=== PATIENT | female | born 1945 | race Caucasian/White ===

== ENCOUNTER → 2016-04-19 | Outpatient (CLI) | payer MEDICARE, OTHER | LOC: GMAM 10:46 | PROVIDERS: ATTEND Family Medicine | DX: M35.9 Systemic involvement of connective tissue, unspecified (principal) ==

== ENCOUNTER → 2016-05-05 | Outpatient (CLI) | payer MEDICARE, OTHER ==
--- NOTE | 2016-05-05 15:47 | MAM ---
EXAM DESCRIPTION: MAMMO BREAST SCREENING BILATERAL CAD, images were reviewed with CAD technology, R2 computer-aided detection. CLINICAL HISTORY: [facility]. COMPARISON: 2011 and 2014 exams. FINDINGS: Routine views are obtained. Nodular parenchymal pattern with the increased mammographic density period glandular pattern remains stable. No dominant mass, architectural distortion or clustered microcalcification. Nodular mammographic asymmetry right breast 12 o'clock, 7-8 cm from the nipple.. IMPRESSION: Incomplete study. BIRAD CATEGORY: 0 INCOMPLETE RECOMMENDATIONS: FOLLOW-UP: Additional views right breast with true lateral and spot compression films. Directed ultrasound if indicated clinically. According to the [employer], yearly mammograms are recommended starting at age 40 and continuing as long as a woman is in good health. Any breast change noted on a breast self-exam should be reported promptly to the patient's healthcare provider. Breast MRI is recommended for women with an approximately 20-25% or greater lifetime risk of breast cancer, including women with a strong family history of breast or ovarian cancer and women who have been treated for Hodgkin's disease. Electronically signed by: Violet Guerin 05/05/2016 15:45
== END ==
LOC: MAMMO 08:51
PROVIDERS: ATTEND Family Medicine
DX: Z12.31 Encounter for screening mammogram for malignant neoplasm of breast (principal)
CPT/HCPCS: 77052; G0202

== ENCOUNTER → 2016-05-27 | Outpatient (CLI) | payer MEDICARE, OTHER ==
--- NOTE | 2016-05-27 10:54 | MAM ---
EXAM DESCRIPTION: MAMMO BREAST DIAGNOSTIC BILATERAL Images were reviewed with R2 computer-aided detection. CLINICAL HISTORY: Mammographic asymmetry right breast 12 o'clock. COMPARISON: Screening evaluation 05/05/2016 and prior study from 2013 FINDINGS: True lateral view and spot compression films were obtained in this glandular tissue that has a nodular contour and the increased mammographic density. The additional views do not demonstrate a persistent asymmetry. No associated mass, architectural distortion or clustered microcalcification. IMPRESSION: Benign exam. BIRAD CATEGORY: 2 BENIGN RECOMMENDATION: FOLLOW-UP: Routine annual study recommended. Findings and recommendations were communicated to the patient by the technologist. According to the [employer], yearly mammograms are recommended starting at age 40 and continuing as long as a woman is in good health. Any breast change noted on a breast self-exam should be reported promptly to the patient's healthcare provider. Breast MRI is recommended for women with an approximately 20-25% or greater lifetime risk of breast cancer, including women with a strong family history of breast or ovarian cancer and women who have been treated for Hodgkin's disease. Electronically signed by: Violet Guerin 05/27/2016 10:52
== END | disposition home or self-care (01) ==
LOC: MAMMO 10:14
PROVIDERS: ATTEND Family Medicine
DX: R92.2 Inconclusive mammogram (principal)
CPT/HCPCS: 77065; G0204

== ENCOUNTER → 2016-07-21 | Outpatient (CLI) | payer MEDICARE, OTHER | LOC: LAB.O 09:42 | PROVIDERS: ATTEND Family Medicine | DX: R94.5 Abnormal results of liver function studies (principal); M35.9 Systemic involvement of connective tissue, unspecified; M06.9 Rheumatoid arthritis, unspecified ==

== ENCOUNTER → 2016-09-27 | Outpatient (CLI) | payer MEDICARE, OTHER ==
--- NOTE | 2016-09-27 17:38 | MRI ---
EXAM DESCRIPTION: Brain w/oContrast CLINICAL HISTORY: 71 years, Female, [facility] COMPARISON: None. FINDINGS: Standard triplanar sequences. Diffusion sequence does not show definite acute infarct. Gradient sequence does show hemorrhage. Ventricles and sulci within normal limits for age. Some minimal microcystic ischemic change periventricular white matter. Some mild ethmoid sinus because thickening. IMPRESSION: No acute infarct, hemorrhage or mass. Study within normal limits for age. Some mild microischemic change periventricular white, age-appropriate Electronically signed by: Xavier Jacobo MD 09/27/2016 5:37 PM CDT
--- NOTE | 2016-09-28 07:33 | MRI ---
MRI right hip without contrast INDICATION: Hip pain right no specific injury initial encounter TECHNIQUE: Noncontrast MR imaging right hip standard protocol FINDINGS: There is a nondisplaced parasymphyseal fracture in the right pubis with adjacent soft tissue edema. There appears to be a small fracture on the left as well. These may be traumatic or insufficiency fractures. There are bilateral sacral insufficiency fractures or traumatic fractures less likely as well. Typical relatively vertical/sagittal orientation. There is also a tear in the anterior superior labrum of the right hip on the sagittal images. Minimal trochanteric bursal edema. No rupture of the gluteal tendons. No osteonecrosis or femoral neck fracture. IMPRESSION: Bilateral sacral ala insufficiency fractures or less likely traumatic fractures Bilateral parasymphyseal pubic fractures nondisplaced Anterior superior labral tear right hip Electronically signed by: Jeremi Garcia MD 09/28/2016 7:32 AM CDT
== END | disposition home or self-care (01) ==
LOC: MRI 13:00
PROVIDERS: ATTEND Family Medicine
DX: R55 Syncope and collapse (principal); M25.551 Pain in right hip

== ENCOUNTER → 2016-10-21 | Outpatient (CLI) | payer MEDICARE, OTHER | END | disposition home or self-care (01) | LOC: LAB.O 11:39 | PROVIDERS: ATTEND Internal Medicine Sports Medicine | DX: M35.9 Systemic involvement of connective tissue, unspecified (principal); Z79.899 Other long term (current) drug therapy ==

== ENCOUNTER → 2016-11-24 | Outpatient (CLI) | payer MEDICARE, OTHER | LOC: LAB.O 09:39 | PROVIDERS: ATTEND Internal Medicine Sports Medicine | DX: Z79.899 Other long term (current) drug therapy (principal); Z01.89 Encounter for other specified special examinations ==

== ENCOUNTER → 2017-01-28 | Outpatient (CLI) | payer MEDICARE, OTHER | END | disposition home or self-care (01) | LOC: GMAM 10:22 | PROVIDERS: ATTEND Family Medicine | DX: M06.9 Rheumatoid arthritis, unspecified (principal) ==

== ENCOUNTER → 2017-05-02 | Outpatient (CLI) | payer MEDICARE, OTHER | END | disposition home or self-care (01) | LOC: GMAM 11:06 | PROVIDERS: ATTEND Family Medicine | DX: M06.9 Rheumatoid arthritis, unspecified (principal) ==

== ENCOUNTER → 2017-06-06 | Outpatient (CLI) | payer MEDICARE, OTHER ==
--- NOTE | 2017-06-10 16:16 | MAM ---
EXAM DESCRIPTION: 3D Screening BILATERAL : Digital Mammography. CLINICAL HISTORY: 71 years Female ANNUAL SCREENING . No complaints. No family history breast cancer. Postmenopausal. Currently on HRT. COMPARISON: 2-D digital screening bilateral studies 05/05/2016 and 02/27/2015.. Report from prior examination also reviewed. TECHNIQUE: Bilateral CC and MLO projection full-field images, 3-D tomosynthesis digital mammographic technique. Also bilateral synthesized CC/ MLO full-field images. CAD not utilized. FINDINGS: The breast parenchymal density pattern is: Heterogeneously dense breast tissue, which may obscure small masses. No skin thickening or nipple retraction bilateral solitary microcalcifications. These are primarily associated with the denser tissues anterior central breast. Bilateral coarse calcifications. Right breast vascular calcifications. No focal, stellate mass or density, focal asymmetry , and no suspicious microcalcifications bilaterally. Stable mammograms compared to prior studies, taking into account differences in mammographic technique IMPRESSION: BI-RADS CATEGORY: 2 - BENIGN FINDINGS. FOLLOW UP: Routine digital bilateral screening, one year interval from May 2017. Written communication explaining the IMPRESSION and follow-up, will be mailed to the patient and referring health care provider. According to the [employer], yearly mammograms are recommended starting at age 40 and continuing as long as a woman is in good health. Any breast change noted on a breast self-exam should be reported promptly to the patient's healthcare provider. Breast MRI is recommended for women with an approximately 20-25% or greater lifetime risk of breast cancer, including women with a strong family history of breast or ovarian cancer and women who have been treated for Hodgkin's disease. A negative mammographic report should not delay tissue diagnosis in patients with significant clinical history or physical findings. Extremely dense breast tissue limits the sensitivity of digital mammography. Electronically signed by: Sergio Rivas MD 06/10/2017 4:15 PM ASSET PROTECTION MANAGER
== END ==
LOC: MAMMO 10:00
PROVIDERS: ATTEND Family Medicine
DX: Z12.31 Encounter for screening mammogram for malignant neoplasm of breast (principal)

== ENCOUNTER → 2017-08-02 | Outpatient (CLI) | payer MEDICARE, OTHER | LOC: GMAM 11:24 | PROVIDERS: ATTEND Family Medicine | DX: M06.9 Rheumatoid arthritis, unspecified (principal) ==

== ENCOUNTER 2017-09-29 05:39 | Day surgery (SDC) | payer MEDICARE, OTHER ==
[2017-09-29] MEDS ORDERED: LACTATED RINGERS 1,000 ML ONE (06:40)
[2017-09-29] MEDS ORDERED: PROPOFOL 200 MG/20 ML VIAL IV ONE (07:00)
[2017-09-29] MEDS ORDERED: LIDOCAINE 1% 10 ML VIAL INJ ONE (07:00)
--- NOTE | 2017-09-29 09:06 | OP ---
DATE OF PROCEDURE: 09/29/17 INDICATION: Age 72, last colonoscopy greater than 10 years previous. PREOPERATIVE DIAGNOSIS: 1. Need for screening colonoscopy. POSTOPERATIVE DIAGNOSIS: 1. Colonoscopy completed to the cecum. 2. Cecal polyp, 4 mm, biopsied and full removed with straight forceps. PROCEDURE: 1. Colonoscopy. SURGEON: Juan C Hernandez MD ANESTHESIA: Per Daniel Cain CRNA. COMPLICATIONS: None apparent. ESTIMATED BLOOD LOSS: Less than 10 mL. TECHNIQUE: The patient was brought to the GI lab and laid in the left lateral decubitus position. Digital rectal exam was performed and found to be normal with good rectal tone and no masses palpated. The colonoscope was advanced gradually into the rectum and through to the cecum. The ileocecal valve was visualized. Photograph of the cecal area was taken. An approximately 4 mm polyp was noted in the cecum, biopsied and full removed with straight forceps biopsy. Good hemostasis was achieved. The scope was gradually withdrawn from the cecum back through the ascending colon and the transverse colon, which appeared normal, back into the descending colon, which also appeared normal, into the sigmoid colon which appeared normal and back into the rectum. In the rectum, the scope was retroflexed. No polyps or masses were found. The scope was straightened and removed. The patient tolerated the procedure well. There were no obvious complications. Prep was adequate. DISPOSITION: The patient will be discharged home when cleared from an Anesthesia standpoint. She will need repeat colonoscopy within 5 years as she did have a polyp and that recommendation could change based on the pathology of the polyp. She will followup with me in one week. #[id number] [facility]
[2017-09-29 10:09] VITALS: BP 132/74; TEMP 97; O2SAT 98
== END 2017-09-29 09:55 | disposition home or self-care (01) ==
LOC: AMB 05:39
PROVIDERS: ATTEND Family Medicine
DX: Z12.11 Encounter for screening for malignant neoplasm of colon (principal); D12.0 Benign neoplasm of cecum; E78.5 Hyperlipidemia, unspecified; I10 Essential (primary) hypertension; K59.00 Constipation, unspecified; M19.90 Unspecified osteoarthritis, unspecified site; K21.9 Gastro-esophageal reflux disease without esophagitis; M06.9 Rheumatoid arthritis, unspecified; Z80.0 Family history of malignant neoplasm of digestive organs; Z87.891 Personal history of nicotine dependence; Z88.7 Allergy status to serum and vaccine; Z88.8 Allergy status to other drugs, medicaments and biological substances; Z79.82 Long term (current) use of aspirin; Z79.899 Other long term (current) drug therapy
CPT/HCPCS: 00812; 45380; 88305; J3490; J7120

== ENCOUNTER → 2017-11-02 | Outpatient (CLI) | payer MEDICARE, OTHER | LOC: GMAM 11:17 | PROVIDERS: ATTEND Family Medicine | DX: M35.9 Systemic involvement of connective tissue, unspecified (principal) ==

== ENCOUNTER → 2018-02-07 | Outpatient (CLI) | payer MEDICARE, OTHER | LOC: GMAM 12:12 | PROVIDERS: ATTEND Family Medicine | DX: Z01.89 Encounter for other specified special examinations (principal); E55.9 Vitamin D deficiency, unspecified; M35.9 Systemic involvement of connective tissue, unspecified; E78.2 Mixed hyperlipidemia; M85.89 Other specified disorders of bone density and structure, multiple sites; Z79.899 Other long term (current) drug therapy ==

== ENCOUNTER 2018-02-27 16:14 | Inpatient (IN) | payer MEDICARE, OTHER ==
--- NOTE | 2018-02-27 16:34 | HP ---
SUPERVISING PHYSICIAN: Juan C Hernandez M.D. CHIEF COMPLAINT: Fever. HISTORY OF PRESENT ILLNESS: This is a 89 year-old female who came as a direct admission from Dr. Hernandez's office. Her illness starts basically back on the 13 of February where she received a Shingrix shingles vaccine. She states that several days later she started to get a cough and then she developed a sore throat. She went to see a nurse practitioner at Dr. Hernandez's office and was diagnosed with Strep. At that point she was placed on Cefdinir and also given a hydrocortisone injection. It should be noted also that the patient has RA, lupus and scleroderma and is in immunosuppressant medications. Back on the was when she was placed on those antibiotics. She states that since that time she developed a case of diarrhea and took some Imodium and probiotics, and that improved. But then she developed a rash to her chest, back, arms, basically everywhere on her body. She went to see Dr. Hernandez today. When he saw her today he did some labs and it showed a white count of 17.6, stable hemoglobin. Platelet count 253. She had a left shift of 87. Chemistry showed a low sodium of 132, potassium 3.3. UA was pretty much unremarkable, just showed 3 to 5 WBCs and was slightly cloudy but few bacteria. Nitrites were negative. She also had BioFire panel which was negative for Bordetella, Chlamydia, mycoplasma pneumonia and negative for multiple viruses as well. She had a chest x-ray which was concerning for either atelectasis or pneumonia in the lingula. Due to the leukocytosis, fever and unresolved with outpatient therapy, she was referred for direct admission. Upon examination the patient was alert and oriented in no distress. She did have an obvious rash throughout her body. The erythema is not raised. She was in no distress. PAST MEDICAL HISTORY: 1. Rheumatoid arthritis. 2. Scleroderma. 3. Lupus. 4. Hypertension. 5. Colon polyps. 6. Osteopenia. 7. Osteoporosis. 8. Shingles in the past. PAST SURGICAL HISTORY: 1. Hysterectomy. 2. Hemorrhoidectomy. 3. Shoulder surgery. 4. Colonoscopy. 5. Esophagogastroduodenoscopy. 6. Stress test. 7. Skin cancer resection off the nose. CURRENT MEDICATIONS: Please see the Med. Rec. list on the computer once it is verified. ALLERGIES: TETANUS TOXOID AND POSSIBLE CEPHALOSPORINS GIVEN THE RASH. FAMILY HISTORY: Father at 39 who had coronary artery disease. Mother who at 90 of congestive heart failure and coronary artery disease. She has 4 brothers, one who of complications from a surgery, 3 sisters, one who of pancreatic cancer, one who had colon cancer and one with thyroid issues. She has a daughter. SOCIAL HISTORY: Nondrinker. Distant history of smoking but quit in 1988. REVIEW OF SYSTEMS: CONSTITUTIONAL: Positive for fever and chills. No recent weight loss or weight gain. HEENT: No headaches, vision changes, ear pain. She has had some nasal congestion and throat pain. NECK: No neck stiffness or neck swelling. RESPIRATORY: Positive for cough. No hemoptysis. No pleuritic chest pain. CARDIOVASCULAR: No chest pain, palpitations or peripheral edema. GASTROINTESTINAL: No nausea, vomiting. She did have diarrhea but it has since resolved. No constipation. No abdominal pain. GENITOURINARY: No dysuria, frequency or flank pain. MUSCULOSKELETAL: Positive for joint pain that is chronic for her chronic conditions. No muscle cramps. HEMATOLOGIC: Positive for easy bruising but no transfusion reaction. ENDOCRINE: No polydipsia, polyuria or polyphagia. No heat or cold intolerance. INTEGUMENT: Positive for the rash as described in History of Present Illness. NEUROLOGIC: No syncope, seizures or paresthesias. PHYSICAL EXAMINATION: VITAL SIGNS: blood pressure 104/65, heart rate 93, respiratory rate 20, temperature 99.2, oxygen saturation 96%. GENERAL: Ms. Trevino is a 72 year-old female no active distress. HEENT: Head normocephalic and atraumatic. Eyes: Pupils are equal and reactive. Nose: With no drainage. Throat: With moist mucosa. Posterior oropharynx with erythema. NECK: Supple. Midline trachea. No jugular venous distention. CHEST: Symmetrical with easy rise and fall of the chest with inspiration and expiration. Lung sounds are clear to auscultation bilaterally. CARDIOVASCULAR: Regular rate and rhythm. Normal S1 and S2. ABDOMEN: Soft, positive bowel sounds. No tenderness to palpation. No organomegaly. GENITOURINARY: Exam is deferred. EXTREMITIES: Lower extremities with no significant edema, 2+ pulses. Capillary refill is less than 2 seconds. NEUROLOGIC: The patient is alert and oriented. Moves all extremities. Extraocular movements are intact. SKIN: Also has a diffuse macular rash. No open lesions. LABORATORY: Labs and films as discussed in the History of Present Illness. ASSESSMENT: 1. Lingular pneumonia. 2. Fever with immunocompromised state. 3. History of rheumatoid arthritis. 4. Scleroderma on immunosuppressant medications. 5. Hyponatremia and hypokalemia. 6. Rash possibly secondary to Streptococcus versus cephalosporin allergy. PLAN: At this point the patient will get some blood cultures. Will empirically place on Levaquin and obviously the cephalosporin will be discontinued. Additionally given her rash and her medical history, will place her on a low dose steroid to see if her rash improves as well as her symptoms. Will order DVT and GI ulcer prophylaxis as well. Once her medications are verified, I will resume her home medications. Will repeat labs tomorrow to ensure we are advancing in the right direction. I placed her on IV fluids with potassium to replete her sodium and potassium levels as well. #[id number] [facility]
[2018-02-27] MEDS ORDERED: SODIUM CHLORIDE 0.9% (FLUSH) 10 ML SYG IV PRN (16:41)
[2018-02-27] MEDS ORDERED: IV SET AND CAP CHANGE INJ INJ SCH (17:00)
[2018-02-27] MEDS: methylPREDNISolone SODIUM SUC 40 MG/ML VIAL IV SCH (18:17)
[2018-02-27] MEDS: levoFLOXacin 750MG IV 750 MG in PREMIX BAG 1 BAG IVPB SCH (18:17)
[2018-02-27] MEDS: ENOXAPARIN SODIUM 40 MG/0.4 ML SYG SUBCU SCH (18:17)
[2018-02-27] MEDS: KCL 20 MEQ/NS 1,000 ML IVS PRN (21:04)
[2018-02-27] MEDS: ACYCLOVIR 200 MG CAP PO SCH (21:06)
[2018-02-27] MEDS: FOLIC ACID 1 MG TAB PO SCH (21:10)
[2018-02-27] MEDS: NON-FORMULARY MEDICATION 1 EA MIS (Hydroxychloroquine Sulfate [Plaquenil] 200 MG) PO SCH (21:10)
[2018-02-27] MEDS: diphenhydrAMINE HCL 25 MG CAP PO PRN (22:07)
[2018-02-28] MEDS: methylPREDNISolone SODIUM SUC 40 MG/ML VIAL IV SCH ×3 (00:10→17:29)
[2018-02-28] MEDS: diphenhydrAMINE HCL 25 MG CAP PO PRN ×2 (03:14→21:24)
[2018-02-28] MEDS: KCL 20 MEQ/NS 1,000 ML IVS PRN ×2 (04:55→14:31)
[2018-02-28] MEDS: OMEPRAZOLE CAP 20 MG CAP PO SCH (06:01)
--- NOTE | 2018-02-28 07:10 | RAD ---
EXAM: Single view chest. INDICATION: Pneumonia. COMPARISON: Chest x-ray: 06/15/2010. FINDINGS: Cardiac silhouette: Unremarkable. Cely: Unremarkable. Lobar consolidation: None. Pleural effusion: None. Pneumothorax: None. Other: None. Bones: Unremarkable. Other: None. IMPRESSION: 1. No acute cardiopulmonary process. Electronically signed by: Ok Pierson MD 02/28/2018 7:09 AM [facility] Workstation: [id number]
[2018-02-28] MEDS: NON-FORMULARY MEDICATION 1 EA MIS (Hydroxychloroquine Sulfate [Plaquenil] 200 MG) PO SCH ×2 (09:00→20:07)
[2018-02-28] MEDS ORDERED: OMEPRAZOLE CAP 20 MG CAP PO SCH (09:00)
[2018-02-28] MEDS: ASPIRIN (ENTERIC COATED) 81 MG TAB PO SCH (09:44)
[2018-02-28] MEDS: ESTRADIOL TAB 1 MG PO SCH (09:44)
[2018-02-28] MEDS: CALCIUM CARBONATE-VITAMIN D 500 MG TAB PO SCH (09:44)
[2018-02-28] MEDS: CHOLECALCIFEROL 2,000 IU TAB PO SCH (09:44)
[2018-02-28] MEDS: SPIRONOLACTONE 25 MG TAB PO SCH (09:44)
[2018-02-28] MEDS: ACYCLOVIR 200 MG CAP PO SCH ×2 (09:45→20:06)
[2018-02-28] MEDS: FOLIC ACID 1 MG TAB PO SCH ×2 (09:45→20:06)
[2018-02-28] MEDS: BIOTIN 1000 MCG PO SCH (09:56)
[2018-02-28] MEDS: HCTZ 25 MG/TRIAMTERENE 37.5 MG 1 EA CAP PO SCH (10:00)
[2018-02-28] MEDS: LOSARTAN POTASSIUM 25 MG TAB PO SCH (10:00)
--- NOTE | 2018-02-28 10:08 | PN ---
SUPERVISING PHYSICIAN: Juan C Hernandez MD DATE: 02/28/18 SUBJECTIVE: The patient feels a lot better than she did yesterday. She was actually up to the sink washing her face. No complaints of shortness of breath. She states her rash is better and her face is definitely less erythematous, but she still has a pretty significant rash on her back. OBJECTIVE: VITAL SIGNS: Blood pressure 111/63. Heart rate 74. Respiratory rate 16. Temperature 97.9. Oxygen saturation 97%. GENERAL: Ms. Trevino is a 72-year-old female in no active distress at this time. NEUROLOGIC: Alert and oriented. LUNGS: Clear to auscultation bilaterally. CARDIOVASCULAR: Regular rate and rhythm. Normal S1, S2. ABDOMEN: Soft. Positive bowel sounds. SKIN: She still has the diffuse, splotchy rash that she had yesterday, but it seems less pronounced and less erythema on her face. LABORATORY: White count 7.1, hemoglobin 13.9, hematocrit 41.3, platelet count 210. This is all improved from the labs done in the office yesterday. Sodium 130, potassium 3.5, chloride 98, CO2 22, BUN 17, creatinine 0.84, glucose 137, calcium 8.3. Chest x-ray is no indicative of any cardiopulmonary process at this time. ASSESSMENT: 1. Lingular pneumonia, appears to be improving. 2. Fever with immunocompromised state, improved. 3. History of rheumatoid arthritis. 4. Scleroderma on immunosuppressant medications. 5. Hyponatremia. 6. Hypokalemia. 7. Rash, possibly secondary to Streptococcal infection versus cephalosporin allergy. PLAN: X-ray seems to be improved. We will continue current antibiotics. I am also going to reduce her steroids given her improvement in her rash. She did not really sleep much last night either. We will continue DVT and GI ulcer prophylaxis as well. Hopefully, she can go home tomorrow with p.o. antibiotics and titrating dose of steroids if she continues to progress. #[id number] [facility]
[2018-02-28] MEDS ORDERED: methylPREDNISolone SODIUM SUC 40 MG/ML VIAL ONE (15:58)
[2018-02-28] MEDS: ENOXAPARIN SODIUM 40 MG/0.4 ML SYG SUBCU SCH (17:28)
[2018-02-28] MEDS: levoFLOXacin 750MG IV 750 MG in PREMIX BAG 1 BAG IVPB SCH (17:28)
[2018-03-01] MEDS: KCL 20 MEQ/NS 1,000 ML IVS PRN (01:29)
[2018-03-01 02:23] VITALS: O2SAT 97
[2018-03-01] MEDS: OMEPRAZOLE CAP 20 MG CAP PO SCH (06:00)
[2018-03-01] MEDS: ASPIRIN (ENTERIC COATED) 81 MG TAB PO SCH (08:27)
[2018-03-01] MEDS: SPIRONOLACTONE 25 MG TAB PO SCH (08:29)
[2018-03-01] MEDS: LOSARTAN POTASSIUM 25 MG TAB PO SCH (08:29)
[2018-03-01] MEDS: HCTZ 25 MG/TRIAMTERENE 37.5 MG 1 EA CAP PO SCH (08:30)
[2018-03-01] MEDS: BIOTIN 1000 MCG PO SCH (08:30)
[2018-03-01] MEDS: CALCIUM CARBONATE-VITAMIN D 500 MG TAB PO SCH (08:31)
[2018-03-01] MEDS: FOLIC ACID 1 MG TAB PO SCH (08:31)
[2018-03-01] MEDS: ESTRADIOL TAB 1 MG PO SCH (08:31)
[2018-03-01] MEDS: NON-FORMULARY MEDICATION 1 EA MIS (Hydroxychloroquine Sulfate [Plaquenil] 200 MG) PO SCH (08:31)
[2018-03-01] MEDS: methylPREDNISolone SODIUM SUC 40 MG/ML VIAL IV SCH (08:35)
[2018-03-01] MEDS: ACYCLOVIR 200 MG CAP PO SCH (08:36)
[2018-03-01] MEDS: CHOLECALCIFEROL 2,000 IU TAB PO SCH (08:36)
[2018-03-01 10:39] VITALS: BP 120/66; TEMP 97.6
[2018-03-06] MEDS ORDERED: METHOTREXATE SODIUM PO SCH (09:00)
--- NOTE | 2018-03-07 10:53 | DS ---
SUPERVISING PHYSICIAN: Juan C Hernandez MD ADMISSION DIAGNOSIS: 1. Lingular pneumonia. 2. Fever with immunocompromised state. 3. History of rheumatoid arthritis. 4. Scleroderma on immunosuppressant medications. 5. Hyponatremia and hypokalemia. 6. Rash possibly secondary to Streptococcus versus cephalosporin allergy. DISCHARGE DIAGNOSIS: 1. Lingular pneumonia, improving. 2. Fever with immunocompromised state, improving, secondary to #1. 3. Leukocytosis at time of admission with the patient showing clinically a good response to treatment but on high dose steroids prior to discharge. 4. History of rheumatoid arthritis. 5. Scleroderma on immunosuppressant medications. 6. Electrolytes imbalance with hyponatremia and hypokalemia, showing improvement with fluids. 7. Rash, uncertain etiology but likely due to cephalosporin allergy. REASON FOR HOSPITALIZATION: This is a 89 year-old female who came as a direct admission from Dr. Hernandez's office. Her illness starts basically back on the 13 of February where she received a Shingrix shingles vaccine. She states that several days later she started to get a cough and then she developed a sore throat. She went to see a nurse practitioner at Dr. Hernandez's office and was diagnosed with Strep. At that point she was placed on Cefdinir and also given a hydrocortisone injection. It should be noted also that the patient has RA, lupus and scleroderma and is in immunosuppressant medications. Back on the was when she was placed on those antibiotics. She states that since that time she developed a case of diarrhea and took some Imodium and probiotics, and that improved. But then she developed a rash to her chest, back, arms, basically everywhere on her body. She went to see Dr. Hernandez today. When he saw her today he did some labs and it showed a white count of 17.6, stable hemoglobin. Platelet count 253. She had a left shift of 87. Chemistry showed a low sodium of 132, potassium 3.3. UA was pretty much unremarkable, just showed 3 to 5 WBCs and was slightly cloudy but few bacteria. Nitrites were negative. She also had BioFire panel which was negative for Bordetella, Chlamydia, mycoplasma pneumonia and negative for multiple viruses as well. She had a chest x-ray which was concerning for either atelectasis or pneumonia in the lingula. Due to the leukocytosis, fever and unresolved with outpatient therapy, she was referred for direct admission. Upon examination the patient was alert and oriented in no distress. She did have an obvious rash throughout her body. The erythema is not raised. She was in no distress. LABORATORY STUDIES: White count 7,100 initially, at discharge was 21,200 with 5 % bands and a left shift after being given high-dose of corticosteroids. Chemistries showed a low sodium and potassium on admission. Discharge sodium had normalized to 140, potassium was at 3.4. BUN 19, creatinine 0.73. MICROBIOLOGY: Blood cultures x2 showed no growth after 5 days. RADIOLOGY: Chest x-ray on admission showed no acute the patient process. HOSPITAL COURSE: Ms. Trevino was admitted on 02/27/18 for treatment of pneumonia and started on Levaquin and Solu-Medrol. She progressed clinically well and was felt stable enough to continue with treatment as transitioned to p.o. medications as an outpatient. PLAN: Ms. Trevino was discharged on 03/01 with instructions to followup with Dr. Hernandez on 03/08/18 at 10:30 AM. She is to resume her home medications as instructed and was told to return to the hospital should she have any concerning symptoms. DISCHARGE DIET: Regular as tolerated. ACTIVITIES: As tolerated. MEDICATIONS: To include Levaquin 757 mg daily for 7 days, Medrol Dosepak as directed. All other medications prior to hospitalization are resumed with no modification. CONDITION ON DISCHARGE: Stable and improving. DISPOSITION: Discharge to care of family. #[id number] [facility]
== END 2018-03-01 11:00 | disposition home or self-care (01) | DRG 194 ==
LOC: MS 16:14
PROVIDERS: ADMIT Nurse Practitioner; ATTEND Nurse Practitioner Family
DX: J18.9 Pneumonia, unspecified organism (principal); E87.1 Hypo-osmolality and hyponatremia; R50.9 Fever, unspecified; M06.9 Rheumatoid arthritis, unspecified; M34.9 Systemic sclerosis, unspecified; E87.6 Hypokalemia; R21 Rash and other nonspecific skin eruption

== ENCOUNTER → 2018-05-10 | Outpatient (CLI) | payer MEDICARE, OTHER | LOC: GMAM 10:25 | PROVIDERS: ATTEND Family Medicine | DX: M35.9 Systemic involvement of connective tissue, unspecified (principal); M81.0 Age-related osteoporosis without current pathological fracture ==

== ENCOUNTER → 2018-05-26 | Outpatient (CLI) | payer MEDICARE, OTHER ==
--- NOTE | 2018-05-26 16:51 | MRI ---
EXAM DESCRIPTION: Lumbar Spine w/o Contrast : Magnetic Resonance Imaging. CLINICAL HISTORY: LOW BACK PAIN COMPARISON: Radiographs of the lumbar spine 05/25/2018. MRI scan of the right hip on the same visit. TECHNIQUE: Multiplanar, multiple standard sequences, non contrast MRI, lumbar spine. FINDINGS: L5-S1: Normal signal in the disc with disc space preserved. Posterior facets and ligaments are unremarkable. Canal is patent. Mild right foraminal narrowing left foramen patent. L4-5: Mild to moderate disc space loss. More to the right of midline. Disc desiccation. Grade 1 4 mm anterolisthesis. Anterior and right side disc and osteophyte bulge encroaching on the right L4 nerve with foraminal stenosis. Mild to moderate left foraminal narrowing. Significant flavum ligament and facet joint hypertrophy. AP canal diameter 9 mm. No spondylolysis. L3-4: Disc desiccation and minimal disc space loss mostly anterior. Anterior disc bulge with endplate spurs. Tiny posterior bulge. Trace 1.5 mm anterolisthesis. Posterior mild flavum ligament and facet joint hypertrophy. Mild canal narrowing. Mild to moderate bilateral foraminal narrowing. L2-3: Mild to moderate disc space loss with disc desiccation. Anterior Modic type II endplate reactive changes with bulging disc and endplate ridging. Tiny posterior disc bulge. Minimal flavum ligament and facet joint hypertrophy with mild canal narrowing. Bilateral mild foraminal narrowing. L1-2: Minimal disc desiccation with Schmorl's node superior L2 endplate. Minimal anterior bulge but no posterior bulge. Disc space maintained. Minimal flavum ligament hypertrophy. Canal and foramina are patent. T12-L1: Minimal disc desiccation. Schmorl's node superior L1 endplate. No disc bulge. Posterior elements unremarkable. Canal and foramina are patent. Conus terminates at L1. No scoliosis. Upper lumbar spine slightly kyphotic. Paravertebral soft tissues unremarkable.. Otherwise normal marrow signal in the remaining vertebral bodies and the posterior elements. Vertebral bodies are not compressed at any level. IMPRESSION: 1. L4-5 disc desiccation bulging into the canal into the right of midline with anterolisthesis. Right foraminal stenosis and possible neural compromise right L4. Mild central canal stenosis. 2. Trace anterolisthesis L3-4. Mild to moderate bilateral foraminal narrowing. Mild canal narrowing. 3. Anterior moderate spondylosis L2-3 with disc bulge and endplate spurs. Electronically signed by: Sergio Rivas MD 05/26/2018 4:49 PM DAILY SALES AUDIT CLERK
--- NOTE | 2018-05-29 07:39 | MRI ---
EXAM DESCRIPTION: Hip,Right CLINICAL HISTORY: 72 years Female, HIP PAIN COMPARISON: CT abdomen pelvis December 07, 2010. TECHNIQUE: Noncontrast multiplanar multisequence magnetic resonance imaging of the right hip was performed. FINDINGS: Full-thickness degenerative tear through the anterior superior labrum (1:00 to 2:00 position) is present with small para labral cyst measuring 0.7 cm. This is superimposed on circumferential labral truncation/degeneration. The alpha angle is normal. 42 degrees. The Center edge angle is normal at 36 degrees. No fibrocystic changes demonstrated along the proximal neck junction. Hip joint space is maintained. No significant subchondral sclerosis or cystlike formation is present. No osteonecrosis or hip fracture. Mild SI joint osteoarthritis. The abductor tendons including the gluteus minimus and gluteus medius exhibit normal thickness and signal intensity. No significant trochanteric bursal fluid collection. Iliopsoas and rectus femoris are maintained. Conjoined hamstring tendons are normal. There is deformity and abnormal signal seen within the right pubic bone. Callus formation is present. This is consistent with a subacute/healing pubic bone fracture. Reproductive organs are nonvisualized/surgically absent. IMPRESSION: Subacute/healing right-sided pubic bone fracture. Degenerative labral tearing. No advanced hip joint osteoarthritis. Mild degenerative sacroiliitis. Electronically signed by: Tha Clayton MD 05/29/2018 7:36 AM [employer]
== END ==
LOC: MRI 13:00
PROVIDERS: ATTEND Family Medicine
DX: M51.36 Other intervertebral disc degeneration, lumbar region (principal); M43.16 Spondylolisthesis, lumbar region; M47.896 Other spondylosis, lumbar region; M46.1 Sacroiliitis, not elsewhere classified; S32.501A Unspecified fracture of right pubis, initial encounter for closed fracture

== ENCOUNTER → 2018-06-26 | Outpatient (CLI) | payer MEDICARE, OTHER ==
--- NOTE | 2018-07-03 09:38 | MAM ---
EXAM DESCRIPTION: 3D Screening BILATERAL : Digital Mammography. CLINICAL HISTORY: 72 years Female SCREEN . No complaints. No personal history of breast cancer. Sister and remote family with breast cancer. Childbirth. Hysterectomy 40 years ago. HRT 5 or more years ago. Lifetime risk of developing breast cancer (Tyrer-Cuzick model)(%): I.9. COMPARISON: Bilateral screening digital breast tomosynthesis 06/06/2017.. TECHNIQUE: Bilateral CC and MLO projection full-field images, digital tomosynthesis mammographic technique. Bilateral digital 2-D full-field MLO images. CAD not available for tomosynthesis or 2-D images. FINDINGS: The breast parenchymal density pattern is: Heterogeneously dense breast tissue, which may obscure small masses. No skin thickening or nipple retraction. Bilateral solitary microcalcifications. Bilateral axillary accessory breast tissue. Bilateral vascular calcifications. Several groups of calcifications in the retroareolar left breast are stable. Region of architectural distortion is larger on the current study at the 12:00 position of the right breast middle third, approximately 7 cm from the nipple. Not associated with microcalcifications. Focal asymmetry in the retroareolar left breast at the 6:00 position, 3 cm from the nipple. Associated with microcalcifications. No new focal, stellate mass or density, focal asymmetry , and no suspicious microcalcifications left breast. IMPRESSION: BI-RADS CATEGORY: 0 - INCOMPLETE- Need additional imaging evaluation. FOLLOW-UP: Recall for additional imaging: Targeted right breast ultrasound in the region of interest retroareolar right breast in the middle third of the right breast as described. Written communication concerning the IMPRESSION and Follow-up, will be mailed to the patient and referring health care provider. Electronically signed by: Sergio Rivas MD 07/03/2018 9:35 AM CDT
== END ==
LOC: MAMMO 10:00
PROVIDERS: ATTEND Family Medicine
DX: Z12.31 Encounter for screening mammogram for malignant neoplasm of breast (principal)

== ENCOUNTER → 2018-07-11 | Outpatient (CLI) | payer MEDICARE, OTHER ==
--- NOTE | 2018-07-12 09:24 | MRI ---
EXAM DESCRIPTION: MRI right knee CLINICAL HISTORY: Right knee pain COMPARISON: None. TECHNIQUE: Multiplanar, multisequence MR images of the right knee FINDINGS: Medial femorotibial chondrosis with high-grade chondral thinning and surface irregularity along both sides of the joint. Small region of edema mid medial femoral condyle overlying the meniscus from grade 4 chondrosis. Subchondral edema over about 6 mm. No other subchondral marrow abnormality. Mild intrameniscal mucoid degenerative signal in the medial meniscus without meniscal tear Mild lateral femorotibial chondrosis with chondral signal heterogeneity and surface irregularity. No full-thickness defect or subchondral marrow abnormality. Minimal degenerative signal in the meniscus without lateral meniscal tear Diffuse chondral thinning of the patella. No full-thickness defect or subchondral marrow abnormality. Femoral trochlear chondral thinning mostly over the apex and medial trochlea without full-thickness defect. Minimal joint fluid. No synovitis or intra-articular body ACL, PCL, and fibular collateral ligaments are intact. Minimal intraligamentous signal in the PCL may relate to a remote low-grade interstitial partial tear Medial collateral ligament intact. There is edema subjacent to the superficial MCL anteriorly with irregularity of the meniscal femoral extension deep MCL, previous low-grade sprain Biceps femoris, popliteus and iliotibial band tendons are normal. Short segment proximal medial patellar tendinosis with intratendinous signal axial image 16, sagittal PD fat-sat series 401 image 24. The remainder of the patellar tendon is normal. 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 Superficial MCL intact Electronically signed by: Juan C Arora MD 07/12/2018 9:21 AM CDT
== END ==
LOC: MRI 10:06
PROVIDERS: ATTEND Family Medicine
DX: S83.411A Sprain of medial collateral ligament of right knee, initial encounter (principal); M94.8X6 Other specified disorders of cartilage, lower leg; M76.51 Patellar tendinitis, right knee

== ENCOUNTER → 2018-07-21 | Outpatient (CLI) | payer MEDICARE, OTHER ==
--- NOTE | 2018-07-22 08:17 | RAD ---
EXAM DESCRIPTION: Pelvis: CR/DR/XR CLINICAL HISTORY: M25.551 COMPARISON: MRI scan of the right hip and pelvis 05/26/2018. TECHNIQUE: One view AP pelvis. FINDINGS: Overall bone density is decreased . Again noted is healing fracture of the right inferior and superior pubic rami abutting the pubic symphysis. Hip joints are symmetric with hypertrophy of the superior lateral acetabula bilaterally. Sclerosis noted about bilaterally around the SI joints. Enthesophytes on the iliac crest. No acute fracture. IMPRESSION: Deformity and healing fracture right pubic symphysis. No new pelvic fracture. Electronically signed by: Sergio Rivas MD 07/22/2018 8:14 AM CDT
== END ==
LOC: RAD 07:40
PROVIDERS: ATTEND Orthopaedic Surgery
DX: S32.501D Unspecified fracture of right pubis, subsequent encounter for fracture with routine healing (principal)

== ENCOUNTER → 2018-07-26 | Outpatient (CLI) | payer MEDICARE, OTHER ==
--- NOTE | 2018-07-27 10:52 | US ---
EXAM DESCRIPTION: Breast,Right: Ultrasound CLINICAL HISTORY: 72 yearsFemaleABNORMAL MAMMOGRAM COMPARISON: Bilateral screening digital breast tomosynthesis 06/26/2018. TECHNIQUE: Transcutaneous scanning of the right breast utilizing leo-scale modes. Scanning performed by the filling room operator ; observation by Dr. Rivas. FINDINGS: Scanning of the retroareolar right breast inferior to the nipple in the mid third of the upper right breast. Approximately equal mixture of fibroglandular and fatty echotexture. No dominant solid mass or distinct cyst. Small ducts in the retroareolar inferior breast. No parenchymal edema or large calcifications. No overlying skin changes. IMPRESSION: Benign exam. BIRAD CATEGORY: 2 BENIGN FINDINGS. RECOMMENDATIONS: FOLLOW UP: Return to routine digital bilateral mammographic screening, one year interval from June 2018. Written communication explaining the IMPRESSION and follow-up, will be mailed to the patient and referring health care provider. The FINDINGS and the FOLLOW-UP plan were reviewed in person with the patient after the examination. According to the [employer], yearly mammograms are recommended starting at age 40 and continuing as long as a woman is in good health. Any breast change noted on a breast self-exam should be reported promptly to the patient's healthcare provider. Breast MRI is recommended for women with an approximately 20-25% or greater lifetime risk of breast cancer, including women with a strong family history of breast or ovarian cancer and women who have been treated for Hodgkin's disease. A negative mammographic report should not delay tissue diagnosis in patients with significant clinical history or physical findings. Extremely dense breast tissue limits the sensitivity of digital mammography. Electronically signed by: Sergio Rivas MD 07/27/2018 10:49 AM [employer]
== END ==
LOC: MAMMO 13:00
PROVIDERS: ATTEND Family Medicine
DX: R92.8 Other abnormal and inconclusive findings on diagnostic imaging of breast (principal)

== ENCOUNTER → 2018-11-15 | Outpatient (CLI) | payer MEDICARE, OTHER | LOC: GMAM 12:19 | PROVIDERS: ATTEND Family Medicine | DX: R94.5 Abnormal results of liver function studies (principal); M35.9 Systemic involvement of connective tissue, unspecified; M15.0 Primary generalized (osteo)arthritis; I10 Essential (primary) hypertension; R73.9 Hyperglycemia, unspecified ==

== ENCOUNTER → 2019-02-16 | Outpatient (CLI) | payer MEDICARE, OTHER | LOC: GMAM 10:31 | PROVIDERS: ATTEND Family Medicine | DX: M35.9 Systemic involvement of connective tissue, unspecified (principal); M15.0 Primary generalized (osteo)arthritis; I10 Essential (primary) hypertension; E78.2 Mixed hyperlipidemia ==

== ENCOUNTER → 2019-08-14 | Outpatient (CLI) | payer MEDICARE, OTHER | LOC: GMAM 12:04 | PROVIDERS: ATTEND Family Medicine | DX: M35.9 Systemic involvement of connective tissue, unspecified (principal); M15.0 Primary generalized (osteo)arthritis; R73.9 Hyperglycemia, unspecified; I10 Essential (primary) hypertension ==

== ENCOUNTER → 2019-08-17 | Outpatient (CLI) | payer MEDICARE, OTHER | LOC: GMAM 10:00 | PROVIDERS: ATTEND Family Medicine | DX: E83.52 Hypercalcemia (principal) ==

== ENCOUNTER → 2019-09-10 | Outpatient (CLI) | payer MEDICARE, OTHER ==
--- NOTE | 2019-09-10 15:47 | MRI ---
Study: MRI of the Right Shoulder. Indication: pain in right shoulder Technique: Multiplanar, multi sequence MRI of the right shoulder was obtained without intravenous contrast. Comparison: None. Findings: Moderate AC joint osteoarthritis. Type I acromion mild lateral downsloping. Small-volume subacromial/subdeltoid bursal fluid. High-grade supraspinatus and infraspinatus tendinosis with mild interstitial fissuring throughout both tendon insertions. No full-thickness tear. Subscapularis tendinosis. Teres minor tendon intact. Intracapsular long head biceps tendinosis. Mild atrophy and grade 1 fatty infiltration rotator cuff musculature. Circumferential labral truncation/degeneration. Mild glenohumeral joint osteoarthritis with a small joint effusion. No acute fracture. Questionable millimetric posterior superior paralabral cyst. Thickening and edema inferior glenohumeral ligament which can be seen with adhesive capsulitis. Impression: High-grade supraspinatus and infraspinatus tendinosis with mild interstitial fissuring throughout both tendon insertions. Subscapular tendinosis. Intracapsular long head biceps tendinosis. Mild atrophy and grade 1 fatty infiltration rotator cuff musculature. Circumferential labral truncation and degeneration. Mild glenohumeral joint osteoarthritis with a small joint effusion. Adhesive capsulitis. Moderate AC joint osteoarthritis. Electronically signed by: Atul Vasquez MD 09/10/2019 3:46 PM CDT
== END ==
LOC: MRI 13:51
PROVIDERS: ATTEND Family Medicine
DX: M75.21 Bicipital tendinitis, right shoulder (principal); M75.91 Shoulder lesion, unspecified, right shoulder; M62.511 Muscle wasting and atrophy, not elsewhere classified, right shoulder; M62.89 Other specified disorders of muscle

== ENCOUNTER → 2019-09-17 | Outpatient (CLI) | payer MEDICARE, OTHER ==
--- NOTE | 2019-09-19 17:09 | MAM ---
EXAM DESCRIPTION: 3D Screening BILATERAL : Digital Mammography. CLINICAL HISTORY: 73 years Female screening . No complaints or personal history of breast cancer. Female sibling with breast cancer unknown age. Remote family history of breast cancer. Menarche age 11. Childbirth. Hysterectomy age 30. No HRT.. Lifetime risk of developing breast cancer (Tyrer-Cuzick model)(%): 8.7. COMPARISON: Bilateral screening digital breast tomosynthesis May 2017 and June 2018.. TECHNIQUE: Bilateral CC and MLO projection full-field images, digital tomosynthesis mammographic technique. Bilateral digital 2-D full-field MLO images. CAD available for 2-D images. FINDINGS: The breast parenchymal density pattern is: Heterogeneously dense breast tissue, which may obscure small masses. No skin thickening or nipple retraction. Bilateral solitary and groups of microcalcifications more numerous in the anterior breasts. Vascular calcifications axillary lymph nodes.. No new focal, stellate mass or density, focal asymmetry , and no suspicious microcalcifications bilaterally. Stable mammograms compared to prior study. IMPRESSION: Benign exam. BIRAD CATEGORY: 2 BENIGN FINDINGS. RECOMMENDATIONS: FOLLOW UP: Routine digital bilateral mammographic screening, one year interval from September 2019. Written communication explaining the IMPRESSION and follow-up, will be mailed to the patient and referring health care provider. According to the [employer], yearly mammograms are recommended starting at age 40 and continuing as long as a woman is in good health. Any breast change noted on a breast self-exam should be reported promptly to the patient's healthcare provider. Breast MRI is recommended for women with an approximately 20-25% or greater lifetime risk of breast cancer, including women with a strong family history of breast or ovarian cancer and women who have been treated for Hodgkin's disease. A negative mammographic report should not delay tissue diagnosis in patients with significant clinical history or physical findings. Extremely dense breast tissue limits the sensitivity of digital mammography. Electronically signed by: Sergio Rivas MD 09/19/2019 5:08 PM CDT
== END ==
LOC: MAMMO 11:00
PROVIDERS: ATTEND Family Medicine
DX: Z12.31 Encounter for screening mammogram for malignant neoplasm of breast (principal)

== ENCOUNTER → 2019-11-02 | Day surgery (SDC) | payer MEDICARE, OTHER | LOC: AMB 10:27 | PROVIDERS: ATTEND Orthopaedic Surgery | DX: Z53.29 Procedure and treatment not carried out because of patient's decision for other reasons (principal) ==

== ENCOUNTER → 2019-11-15 | Outpatient (CLI) | payer MEDICARE, OTHER | LOC: GMAM 10:24 | PROVIDERS: ATTEND Family Medicine | DX: R94.5 Abnormal results of liver function studies (principal); M35.9 Systemic involvement of connective tissue, unspecified; E83.52 Hypercalcemia ==

== ENCOUNTER → 2020-02-15 | Outpatient (CLI) | payer MEDICARE, OTHER | LOC: GMAM 10:49 | PROVIDERS: ATTEND Family Medicine | DX: M35.9 Systemic involvement of connective tissue, unspecified (principal); Z79.899 Other long term (current) drug therapy ==

== ENCOUNTER → 2020-03-25 | Outpatient (CLI) | payer MEDICARE, OTHER | LOC: GMAM 16:45 | PROVIDERS: ATTEND Family Medicine | DX: E53.8 Deficiency of other specified B group vitamins (principal); D75.89 Other specified diseases of blood and blood-forming organs; I10 Essential (primary) hypertension; R73.9 Hyperglycemia, unspecified; R14.0 Abdominal distension (gaseous) ==

== ENCOUNTER → 2020-03-28 | Outpatient (CLI) | payer MEDICARE, OTHER ==
--- NOTE | 2020-03-29 11:19 | CT ---
EXAM DESCRIPTION: CT ABDOMEN AND PELVIS WITHOUT AND WITH CONTRAST CLINICAL HISTORY: ABD DISTENSION COMPARISON: April 03, 2009 CT chest and December 07, 2010 CT abdomen pelvis TECHNIQUE: CT of the abdomen and pelvis are performed prior to and during IV bolus administration of 100 mL of IV contrast. FINDINGS: The lung bases are clear of infiltrate. Liver is normal in size and parenchymal appearance. Spleen, pancreas, and kidneys are unremarkable. Very large volume of stool throughout the colon There is no lymphadenopathy, inflammation, or free fluid observed. IMPRESSION: Constipation-chronic This exam was performed according to our departmental dose-optimization program, which includes automated exposure control, adjustment of the mA and/or kV according to patient size and/or use of iterative reconstruction technique. Electronically signed by: Abimael Moreland MD 03/29/2020 11:18 AM [facility]
== END ==
LOC: CT 08:43
PROVIDERS: ATTEND Family Medicine
DX: K59.09 Other constipation (principal); R14.0 Abdominal distension (gaseous)

== ENCOUNTER → 2020-05-20 | Outpatient (CLI) | payer MEDICARE, OTHER | LOC: GMAM 10:54 | PROVIDERS: ATTEND Family Medicine | DX: M35.9 Systemic involvement of connective tissue, unspecified (principal); Z79.899 Other long term (current) drug therapy ==